=== PATIENT | female | born 1980 | race Caucasian/White ===

== ENCOUNTER 2018-06-15 06:09 | Inpatient (IN) | payer BC, OTHER ==
[~2018-06-15 06:09] MED LIST: Buffered Lidocaine 1% SYRIN* 1 ML/SYRINGE INTRADERM ONE; Famotidine TAB* 20 MG PO ONE; Lactated Ringers 1000 ML Bag* 1,000 ML IV SCH; Sodium Citrate/Citric Acid* 15 ML UDC PO ONE
[2018-06-15] MEDS ORDERED: ceFOXitin 2 GM IVPREMIX* 2 GM/50 ML BAG IVPB ONE (06:30)
[2018-06-15] MEDS ORDERED: Morphine PF AMP (0.5MG/ML)* 5 MG/10 ML AMP ONE (07:29)
[2018-06-15] MEDS ORDERED: fentaNYL* 50 MCG/ML 2 ML VIAL (100 MCG VIAL) ONE (07:29)
[2018-06-15] MEDS ORDERED: Ondansetron INJ* 2 MG/ML VIAL ONE (07:30)
[2018-06-15] MEDS ORDERED: Lidocaine 2% PF * 5 ML VIAL ONE (07:38)
[2018-06-15] MEDS ORDERED: OXYTOCIN* 10 UNITS/ML 1 ML VIAL ONE (08:24)
[2018-06-15] MEDS ORDERED: Ondansetron INJ* 2 MG/ML VIAL IV PRN (08:51)
[2018-06-15] MEDS ORDERED: Naloxone* 0.4 MG/ML 1 ML VIAL IV PRN (08:51)
[2018-06-15] MEDS ORDERED: oxyCODONE TAB* 5 MG TAB PO PRN (08:51)
[2018-06-15] MEDS ORDERED: Metoclopramide IV* 5 MG/ML 2 ML VIAL IV PRN (08:51)
[2018-06-15] MEDS ORDERED: Acetaminophen TAB* 325 MG PO PRN (09:15)
[2018-06-15] MEDS ORDERED: Witch Hazel PAD* JAR TOPICAL PRN (09:15)
--- NOTE | 2018-06-15 09:40 | OP ---
DATE OF OPERATION: 06/15/18 - ROOM #117 DATE OF : 78 SURGEON: Mariangel Sow MD. FIELD ACCOUNT MANAGER: Colin. ANESTHESIOLOGIST: Dr. Dodson. ANESTHESIA: Spinal. PRE-OP DIAGNOSIS: A 39 weeks gestation with history of previous section. POST-OP DIAGNOSIS: A 39 weeks gestation with history of previous section. OPERATIVE PROCEDURE: Repeat low-transverse section. ESTIMATED BLOOD LOSS: 700 cc. URINE OUTPUT: 200 cc. IV FLUIDS: 1200 cc lactated Ringer's. MATERIALS TO LAB: Cord blood. INDICATIONS: This patient was a 38-year-old 5, para 1 with history of previous section and surgery for endometriosis. The patient desired a repeat section. She was extensively counseled and consent was signed. FINDINGS: Normal-appearing uterus other than an apparent left fundal fibroid, normal fallopian tubes, and ovaries. Delivery was productive of a female weighing 7 pounds 2 ounces with Apgars of 8 and 9. TIME OF DELIVERY: 0825. COMPLICATIONS: None. DESCRIPTION OF PROCEDURE: The risks, benefits, and alternatives were described to the patient, and informed consent was obtained. The patient was taken to the operating room with IV running, where spinal anesthesia was induced and found to be adequate. The patient was prepped and draped in normal sterile fashion in the dorsal supine position with a leftward tilt. A Pfannenstiel skin incision was made with a scalpel through the patient's previous incision. This was carried down to the underlying fascia using the scalpel. The fascia was scored in the midline, and the incision was extended using Villarreal scissors. The fascia was dissected off the underlying rectus muscles using blunt and sharp dissection. The rectus muscles were in the midline using dissection with a Narda clamp. The peritoneum was then entered bluntly. A bladder blade was placed. A bladder flap was created sharply using Metzenbaum scissors. A low transverse uterine incision was then made with the scalpel. This was carried down to the amniotic membranes. The membranes were then ruptured, productive of clear fluid. The uterine incision was extended using blunt traction. The head was elevated to the level of the incision, and, with fundal pressure, the head delivered without much difficulty. The shoulders then were also both delivered and the body followed. The had good tone and cried immediately on delivery. The cord was doubly clamped and cut. The was then handed to the awaiting finance mgr. Cord blood was collected. The placenta was delivered with manual extraction. The uterus was then left in situ due to the bulky fundus and cleared of all clots and debris. The uterine incision was then reapproximated using 0 Vicryl in a running-locked fashion. A second layer of imbricating 0 Vicryl sutures was then also placed for good hemostasis. The posterior cul-de-sac was irrigated with saline. The uterus was then returned to the abdomen. The incision was reinspected and still noted to be hemostatic. The peritoneum was closed with 3-0 Vicryl in a running fashion. The fascia was closed with 0 Vicryl in a running fashion. The subcutaneous tissues were copiously irrigated and made hemostatic using the Bovie. The subcutaneous tissues were then reapproximated using 3-0 Vicryl in interrupted sutures. The skin was then closed with 4-0 Monocryl in a subcuticular stitch. Mastisol and steristrips were then applied. A sterile bandage was then placed over the incision. The patient tolerated the procedure well. Sponge, lap, and needle counts were correct x2. [id number]/[facility] #: [id number] [facility]
[2018-06-15] MEDS ORDERED: Lactated Ringers 1000 ML Bag* 1,000 ML IV SCH (10:00)
[2018-06-15] MEDS: Ketorolac INJ* 30 MG/ML 1 ML VIAL IV SCH ×3 (10:43→22:39)
[2018-06-15] MEDS: Simethicone TAB* 80 MG TAB.CHEW PO SCH ×3 (12:09→20:28)
[2018-06-15] MEDS: Docusate CAP* 100 MG PO SCH ×2 (12:09→20:28)
[2018-06-15] MEDS: Acetaminophen TAB* 325 MG PO SCH ×2 (13:44→19:42)
[2018-06-16] MEDS: Acetaminophen TAB* 325 MG PO SCH ×4 (01:37→20:15)
[2018-06-16] MEDS: Ketorolac INJ* 30 MG/ML 1 ML VIAL IV SCH (04:39)
[2018-06-16] MEDS: Docusate CAP* 100 MG PO SCH ×3 (07:56→20:15)
[2018-06-16] MEDS: Simethicone TAB* 80 MG TAB.CHEW PO SCH ×4 (07:58→20:15)
[2018-06-16 08:31] LABS: ABS Basophils 0 10^3/ul (0-0.2); ABS Eosinophils 0.1 10^3/ul (0-0.6); ABS Lymphocytes 1.7 10^3/ul (1.0-4.8); ABS Monocytes 0.7 10^3/ul (0-0.8); ABS Neutrophils 7.6 10^3/ul (1.5-7.7); ABS Nucleated RBC 0 10^3/ul; Eosinophil % 1.1 %; Hematocrit 31 % (33-41); Hemoglobin 10.6 g/dL (12.0-16.0); Lymphocyte % 16.8 %; Mean Corpuscular HGB Conc 35 g/dL (31-36); Mean Corpuscular Hemoglobin 30 pg (27-31); Mean Corpuscular Volume 87 fL (80-97); Mean Platelet Volume 8.4 fL (7.4-10.4); Nucleated Red Blood Cells % 0; Platelet Count 209 10^3/uL (150-450); Red Blood Count 3.53 10^6 /uL (3.70-4.87); Red Cell Distribution Width 13 % (10.5-15); White Blood Count 10.1 10^3/uL (3.5-10.8)
[2018-06-16] MEDS ORDERED: Albuterol HFA INHALER* 8 gm MDI INH PRN (08:47)
[2018-06-16] MEDS ORDERED: Tetan/Diph/Pertus SYR(Tdap)* 0.5 ML SYR(BOOSTRIX) use SYR IM ONE (09:00)
[2018-06-16] MEDS ORDERED: Ferrous Gluconate TAB* 324 MG TAB PO SCH (09:00)
[2018-06-16] MEDS: Ibuprofen TAB* 600 MG PO PRN ×3 (10:33→22:48)
[2018-06-17] MEDS: Acetaminophen TAB* 325 MG PO SCH ×4 (01:55→20:30)
[2018-06-17] MEDS: Ibuprofen TAB* 600 MG PO PRN ×4 (04:37→23:26)
[2018-06-17] MEDS: Levothyroxine TAB* 25 MCG TAB PO SCH (05:45)
[2018-06-17] MEDS: Docusate CAP* 100 MG PO SCH ×3 (08:36→20:29)
[2018-06-17] MEDS: Simethicone TAB* 80 MG TAB.CHEW PO SCH ×4 (08:36→20:30)
[2018-06-18] MEDS: Acetaminophen TAB* 325 MG PO SCH ×2 (03:01→09:22)
[2018-06-18] MEDS: Levothyroxine TAB* 25 MCG TAB PO SCH (05:28)
[2018-06-18] MEDS: Ibuprofen TAB* 600 MG PO PRN ×2 (05:28→11:15)
[2018-06-18 07:52] VITALS: BP 112/57
[2018-06-18] MEDS: Simethicone TAB* 80 MG TAB.CHEW PO SCH (09:21)
[2018-06-18] MEDS: Docusate CAP* 100 MG PO SCH (09:21)
== END 2018-06-18 14:32 | disposition home or self-care (01) | DRG 540 ==
LOC: MCHOB 06:09
PROVIDERS: ADMIT Obstetrics & Gynecology; ATTEND Obstetrics & Gynecology
PROC: 4A1HXCZ Monitoring of Products of Conception, Cardiac Rate, External Approach (ICD-10-PCS; 2018-06-15)
PROC: 10D00Z1 Extraction of Products of Conception, Low, Open Approach (ICD-10-PCS; principal; 2018-06-15 07:45)
DX: O34.211 Maternal care for low transverse scar from previous cesarean delivery (principal); J45.909 Unspecified asthma, uncomplicated; O99.52 Diseases of the respiratory system complicating childbirth; O99.284 Endocrine, nutritional and metabolic diseases complicating childbirth; E06.3 Autoimmune thyroiditis; Z37.0 Single live birth; Z3A.39 39 weeks gestation of pregnancy
CPT/HCPCS: 36415; 85025; A9270-GY; J0694; J1885; J2405; J2590; J3010

== ENCOUNTER 2018-07-26 15:30 | Emergency (ER) | payer BC ==
[2018-07-26 15:37] VITALS: BP 104/69
--- NOTE | 2018-07-26 16:04 | ED ---
Skin Complaint - HPI Summary HPI Summary: This patient is a 38-year-old female who presents to the urgent care with chief complaint of having and splinting in the right foot for the last 3 weeks. Now the area with a splinter is located is very painful and has some discharge. She reports that the pain is about 8 out of 10. She has no other complaints. - History of Current Complaint Chief Complaint: UCLowerExtremity Time Seen by Provider: 07/26/18 15:35 Stated Complaint: R FOOT COMPLAINT Hx Obtained From: Patient Hx Last Menstrual Period: August 2017 Skin Exposure Onset/Duration: Weeks Ago Onset Severity: Mild Current Severity: Mild Pain Intensity: 2 - Allergy/Home Medications Allergies/Adverse Reactions: Allergies Allergy/AdvReac Type Severity Reaction Status Date / Time No Known Allergies Allergy Verified 07/26/18 15:37 PMH/Surg Hx/FS Hx/Imm Hx Previously Healthy: Yes Endocrine/Hematology History: Reports: Hx Thyroid Disease - on Levothyroxine 25 mcg Denies: Hx Diabetes Cardiovascular History: Denies: Hx Hypertension Respiratory History: Reports: Hx Asthma Denies: Hx Chronic Obstructive Pulmonary Disease (COPD) GI History: Denies: Hx Ulcer History: Reports: Other Problems/Disorders - celiac dis. Psychiatric History: Reports: Hx Anxiety - Surgical History Surgery Procedure, Year, and Place: csection - 03/2012, 2019. D&C's. uterine surgeries Infectious Disease History: No Infectious Disease History: Denies: Hx Clostridium Difficile, Hx Hepatitis, Hx Human Immunodeficiency Virus (HIV), Hx of Known/Suspected MRSA, Hx Shingles, Hx Tuberculosis, Traveled Outside the [place] in Last 30 Days - Social History Alcohol Use: None Substance Use Type: Reports: None Smoking Status (MU): Never Smoked Tobacco Review of Systems Constitutional: Negative Eyes: Negative ENT: Negative Cardiovascular: Negative Respiratory: Negative Gastrointestinal: Negative Genitourinary: Negative Musculoskeletal: Negative Positive: Other - Splinter in the right foot Neurological: Negative Psychological: Normal All Other Systems Reviewed And Are Negative: No Physical Exam - Summary Physical Exam Summary: Vital signs: Reviewed Gen.: Patient is a well-developed and nourished female in no acute distress. Patient is lying comfortably on the stretcher. Head: Normocephalic and atraumatic Eyes: PERRLA, EOMI x2. Ears: Right and Left ear canal and TM WNL Nose and mouth: Neck: Supple, no lymphadenopathy, no JVD Lungs: CTA B/L CVS: S1 & S2 present. No murmurs appreciated. ABDOMEN: Soft, non-tender. No signs of distention. No rebound no guarding, and no masses palpated. Bowel sounds are normal. EXTREMITIES: Right foot with a foreign body NEURO: Alert and oriented x 3. No acute neurological deficits. Speech is normal and follows commands. SKIN: Dry and warm Triage Information Reviewed: Yes Vital Signs On Initial Exam: Initial Vitals Temp Pulse Resp BP Pulse Ox 97.5 F 73 16 104/69 97 07/26/18 15:32 07/26/18 15:32 07/26/18 15:32 07/26/18 15:32 07/26/18 15:32 Vital Signs Reviewed: Yes Diagnostics - Vital Signs Vital Signs Temp Pulse Resp BP Pulse Ox 07/26/18 15:32 97.5 F 73 16 104/69 97 - Laboratory Lab Statement: Any lab studies that have been ordered have been reviewed, and results considered in the medical decision making process. Course/Dx - Course Assessment/Plan: Using a 15 blade I scraped some of the callus and the splinter was visible which was approximately 1.3 cm and it was removed. Was copious amount of purulent discharge after the splinter was removed. Wound culture was obtained and sent to the lab. The patient already has a prescription for Keflex which she was started taking today. Patient will follow-up with primary care physician in the next 2-3 days medication and to the one is getting better. Patient is hemodynamically stable alert oriented 3. - Diagnoses Provider Diagnoses: Foreign body foot/toe Discharge - Sign-Out/Discharge Documenting (check all that apply): Patient Departure All imaging exams completed and their final reports reviewed: No Studies - Discharge Plan Condition: Stable Disposition: HOME Patient Education Materials: Soft Tissue Foreign Body (ED), Cellulitis (ED) Referrals: Trina Vitale MD [Primary Care Provider] - Additional Instructions: Take medications as instructed. Follow-up with the primary care physician the next 2 days. Return to the urgent care if symptoms worsen. - Billing Disposition and Condition Condition: STABLE Disposition: Home
--- NOTE | 2018-07-27 17:43 | UC ---
- Progress Note Progress Note: 07/27/2018 Wound culture: positive cocci resembling strep. Pt on Keflex PO Final report still pending NO change. Arcelia Balbuena PA-C Course/Dx - Diagnoses Provider Diagnoses: Foreign body foot/toe Discharge - Sign-Out/Discharge Documenting (check all that apply): Post-Discharge Follow Up All imaging exams completed and their final reports reviewed: No Studies - Discharge Plan Condition: Stable Disposition: HOME Patient Education Materials: Soft Tissue Foreign Body (ED), Cellulitis (ED) Referrals: Trina Vitale MD [Primary Care Provider] - Additional Instructions: Take medications as instructed. Follow-up with the primary care physician the next 2 days. Return to the urgent care if symptoms worsen. - Billing Disposition and Condition Condition: STABLE Disposition: Home
== END 2018-07-26 16:21 | disposition home or self-care (01) ==
LOC: UCEAST 15:30
DX: S90.851A Superficial foreign body, right foot, initial encounter (principal); E07.9 Disorder of thyroid, unspecified; Z79.890 Hormone replacement therapy; W45.8XXA Other foreign body or object entering through skin, initial encounter; Y92.9 Unspecified place or not applicable
CPT/HCPCS: 87070; 87077; 87186; 87205; 99211; G0463

== ENCOUNTER 2018-12-30 11:27 | Emergency (ER) | payer BC ==
[2018-12-30 11:42] VITALS: BP 96/67
--- NOTE | 2018-12-30 11:44 | UC ---
Nausea/Vomiting/Diarrhea HPI - HPI Summary HPI Summary: Patient presents to urgent care for evaluation of diarrhea. Patient states she is having loose bowel movements 5-6 times a day and has been doing so for approximately 2 weeks. No blood, no mucous. Patient denies fevers or chills. Patient states initially she had some cramping but since that time has had no abdominal pain. No fevers or chills. No rashes. No nausea or vomiting. Patient's father has the same symptoms for 2 weeks. Patient's [id number] water from a well. Patient states she is fresh troubles from his garden. Patient without vaginal discharge, itching or odor. Patient making good urine. Patient without any recent travel and no recent antibiotics. Patient without any known significant exposure. Patient is a nursing mother of a 6-month-old with out symptoms. Patient also has a taco without any symptoms. Patient's medications review of this visit. Patient came to today because she was unable to get up a appointment primary care provider - History of Current Complaint Chief Complaint: UCGeneralIllness Stated Complaint: DIARRHEA Time Seen by Provider: 12/30/18 11:43 Hx Obtained From: Patient Hx Last Menstrual Period: Breast feeding Pain Intensity: 0 - Allergies/Home Medications Allergies/Adverse Reactions: Allergies Allergy/AdvReac Type Severity Reaction Status Date / Time No Known Allergies Allergy Verified 07/26/18 15:37 PMH/Surg Hx/FS Hx/Imm Hx Previously Healthy: Yes - Surgical History Surgical History: Yes Surgery Procedure, Year, and Place: [facility] - 03/2012, 2019. D&C's. uterine surgeries - Family History Known Family History: Positive: Non-Contributory - Social History Lives: With Family Alcohol Use: None Substance Use Type: None Smoking Status (MU): Never Smoked Tobacco - Immunization History Most Recent Influenza Vaccination: 02/04/18 Most Recent Tetanus Shot: 2 yrs Most Recent Pneumonia Vaccination: None Review of Systems All Other Systems Reviewed And Are Negative: Yes Constitutional: Positive: Negative. Negative: Fever, Fatigue Respiratory: Positive: Negative Cardiovascular: Positive: Negative Gastrointestinal: Positive: Diarrhea. Negative: Vomiting, Nausea Physical Exam - Summary Physical Exam Summary: Vital Signs Reviewed: Yes A+Ox3, no distress Eyes: Conjunctiva Clear, JAREK. EOM intact and full ENT: Hearing grossly normal TM x 2 clear, mmoist, uvula midline, no exudate, no erythema Neck: Positive: Supple Respiratory: Positive: No respiratory distress, No accessory muscle use + CTA throughout no w/r Cardiovascular: RRR nl s1, s2 no m/r CBT <2 sec abd soft + BS nt/nd no guarding, no distension Musculoskeletal Exam: RICHARDS x 4 without difficulty Strength Intact, ROM Intact Neurological: Positive: Alert, + sensation throughout Psychological: Positive: Normal Response To examiner Skin: Positive: no rash, no ecchymosis Triage Information Reviewed: Yes Vital Signs: Initial Vital Signs Temp 98.1 F 12/30/18 11:36 Pulse 72 12/30/18 11:36 Resp 16 12/30/18 11:36 BP 96/67 12/30/18 11:36 Pulse Ox 98 12/30/18 11:36 Naus/Vom/Diarrhea Course/Dx - Course Course Of Treatment: Patient presents to urgent care reported diarrhea for several weeks. Patient denies fevers or chills. States has mild cramping improved with diarrhea. No blood no blood or mucus. Patient's was similar symptoms. On exam vital signs are stable. Patient concerning. On discussion with patient about plan of care. We'll check stool cultures urine for dehydration and blood work. Patient comfortable and agreed with plan. Return precautions discussed. Patient will plan a follow-up appointment with PCP. Patient in agreement. - Differential Dx/Diagnosis Provider Diagnosis: Diarrhea Condition At Discharge: Stable Discharge ED - Sign-Out/Discharge Documenting (check all that apply): Patient Departure All imaging exams completed and their final reports reviewed: No Studies - Discharge Plan Condition: Stable Disposition: HOME Patient Education Materials: Chronic Diarrhea (ED) Referrals: Trina Vitale MD [Primary Care Provider] - Additional Instructions: -As discussed, you had both blood and stool tests taken today. These results will come back over the next several days. If you have any concerning findings, you will receive a call from a care steam locomotive firer/fireman - Stay well hydrated. Drink plenty of non-alcoholic, non-caffinated beverages - If you develop pain, fevers, are unable to stay hydrated or you have any other concerns it is recommended you go to the emergency department for further evaluation and treatment - Billing Disposition and Condition Condition: STABLE Disposition: Home
[2018-12-30 16:34] LABS: ABS Eosinophils 0.1 10^3/ul (0-0.6); ABS Lymphocytes 1.5 10^3/ul (1.0-4.8); ABS Monocytes 0.3 10^3/ul (0-0.8); ABS Neutrophils 3.6 10^3/ul (1.5-7.7); Eosinophil % 2.2 %; Hematocrit 40 % (35-47); Hemoglobin 13.8 g/dL (12.0-16.0); Lymphocyte % 26.3 %; Mean Corpuscular HGB Conc 35 g/dL (31-36); Mean Corpuscular Hemoglobin 30 pg (27-31); Mean Corpuscular Volume 87 fL (80-97); Mean Platelet Volume 8.7 fL (7.4-10.4); Platelet Count 271 10^3/uL (150-450); Red Blood Count 4.59 10^6 /uL (3.70-4.87); Red Cell Distribution Width 13 % (10-15); White Blood Count 5.6 10^3/uL (3.5-10.8)
[2018-12-30 16:42] LABS: Albumin 4.4 g/dL (3.2-5.2); Calcium 9.1 mg/dL (8.6-10.3); Magnesium 1.9 mg/dL (1.9-2.7); Total Bilirubin 0.4 mg/dL (0.2-1.0)
[2018-12-30 16:48] LABS: Albumin/Globulin Ratio 1.8 (1-3); BUN/Creatinine Ratio 11.8 (8-20); EGFR African American 102.5 (>60); EGFR Non-African American 84.7 (>60); Globulin 2.5 g/dL (2-4); Total Protein 6.9 g/dL (6.4-8.9)
--- NOTE | 2018-12-31 12:22 | UC ---
- Progress Note Progress Note: CBC with dif reviewed cmp with mag wnl Neg crypto, giardia no change ljj 12/31/18 Course/Dx - Diagnoses Provider Diagnoses: Diarrhea Discharge ED - Sign-Out/Discharge Documenting (check all that apply): Patient Departure All imaging exams completed and their final reports reviewed: No Studies - Discharge Plan Condition: Stable Disposition: HOME Patient Education Materials: Chronic Diarrhea (ED) Referrals: Trina Vitale MD [Primary Care Provider] - Additional Instructions: -As discussed, you had both blood and stool tests taken today. These results will come back over the next several days. If you have any concerning findings, you will receive a call from a care merchandise flow team leader - Stay well hydrated. Drink plenty of non-alcoholic, non-caffinated beverages - If you develop pain, fevers, are unable to stay hydrated or you have any other concerns it is recommended you go to the emergency department for further evaluation and treatment - Billing Disposition and Condition Condition: STABLE Disposition: Home
== END 2018-12-30 12:24 | disposition home or self-care (01) ==
LOC: UCEAST 11:27
DX: R19.7 Diarrhea, unspecified (principal)
CPT/HCPCS: 36415; 80053; 81003; 83630; 83690; 83735; 85025; 87045; 87046; 87177; 87209; 87328; 87329; 87899; 99211; G0463

== ENCOUNTER 2023-08-28 06:02 | Observation (INO) ==
[~2023-08-28 06:02] MED LIST changes: -Buffered Lidocaine 1% SYRIN* 1 ML/SYRINGE INTRADERM ONE; -Famotidine TAB* 20 MG PO ONE; -Lactated Ringers 1000 ML Bag* 1,000 ML IV SCH; +Metoclopramide 5 MG/ML VIAL (10 mg) IV PRN; +NS 0.45% 1000 ml BAG 1,000 ML IV SCH; +Naloxone 0.4 mg VIAL 0.4 mg/ml 1 ml VIAL IV PRN; +Ondansetron 4 mg VIAL 2 MG/ML 2 ml VIAL IV PRN; -Sodium Citrate/Citric Acid* 15 ML UDC PO ONE; +fentaNYL 100 mcg/2 ml 50 MCG/ML VIAL IV PRN
[2023-08-28] MEDS ORDERED: Lidocaine 2% PF 5 ML VIAL ONE (06:26)
[2023-08-28] MEDS ORDERED: fentaNYL 250 mcg/5 ml 50 MCG/ML 5 ml VIAL (250 MCG) ONE ×2 (06:27→08:19)
[2023-08-28] MEDS ORDERED: Midazolam 2 mg/2 ml VIAL 1 mg/ml 2 ml VIAL (2 mg) ONE (06:27)
[2023-08-28] MEDS ORDERED: Rocuronium 50 mg VIAL 10 mg/ml 5 ml VIAL (50 mg) ONE ×2 (06:32→08:00)
[2023-08-28] MEDS ORDERED: Scopolamine 1 mg/72hr PATCH ONE (06:36)
[2023-08-28] MEDS ORDERED: Dexamethasone IV 4 MG/ML VIAL 1 ml VIAL ONE (06:37)
[2023-08-28] MEDS ORDERED: Propofol 10 mg/ml 100 ML BTL 2,000 MG/200 ML BTL ONE (06:37)
[2023-08-28] MEDS ORDERED: ceFAZolin 2 GM PREMIX 2 GM/50 ML BAG ONE (06:37)
[2023-08-28] MEDS ORDERED: Ondansetron 4 mg VIAL 2 MG/ML 2 ml VIAL ONE (06:37)
[2023-08-28] MEDS ORDERED: Buffered Lidocaine 1% SYRIN 1 ml ONE (06:37)
[2023-08-28 06:53] LABS: Rapid COVID-19 Molecular Undetected (Undetected)
[2023-08-28] MEDS: Scopolamine 1 mg/72hr PATCH TRANSDERM ONE (07:06)
[2023-08-28] MEDS ORDERED: Methylene Blue 1% (ANTIDOTE) 10 MG/ML 10 ML SDV VIAL IVPB ONE (07:19)
[2023-08-28] MEDS ORDERED: Bupivacaine 0.25% SDV 30 ML ONE (07:19)
[2023-08-28] MEDS ORDERED: ISOSULFAN BLUE 1% 5 ML VIAL 10 MG/ML SUBCUT ONE (07:19)
[2023-08-28] MEDS ORDERED: HYDROmorphone 0.5 MG/0.5 ML SYRINGE ONE ×2 (08:25→09:20)
[2023-08-28] MEDS: Buffered Lidocaine 1% SYRIN 1 ml INTRADERM ONE (11:41)
[2023-08-28] MEDS: Acetaminophen IV 1 GM/100ML 1,000 MG/100 ML BAG IV ONE (11:41)
[2023-08-28] MEDS: Lactated Ringers 1000 ml BAG 1,000 ML IV SCH ×2 (11:41→14:36)
[2023-08-28] MEDS ORDERED: Morphine 2 MG/ML SYRINGE IV PRN (12:16)
[2023-08-28] MEDS ORDERED: oxyCODONE/Acetamin 5/325 mg TAB PO PRN (12:18)
[2023-08-28] MEDS: Lactated Ringers 1000 ml BAG 1,000 ML IV ONE ×2 (12:53→20:23)
[2023-08-28] MEDS ORDERED: Albuterol HFA INHALER 8 gm MDI INH PRN (19:19)
[2023-08-28 20:41] LABS: ABS Monocytes 0.5 10^3/uL (0.0-0.9); ABS Neutrophils 8.9 10^3/uL (1.5-7.6); ABS Nucleated RBC 0.01 10^3/ul; Hematocrit 35.7 % (35-45); Hemoglobin 12.3 g/dL (11.5-14.3); Mean Corpuscular Hemoglobin 30.6 pg (27-33); Mean Corpuscular Hgb Conc 34.3 g/dL (31-36); Mean Corpuscular Volume 89.2 fL (80-97); Mean Platelet Volume 8.9 fL (7.5-11.2); Platelet Count 213 10^3/uL (150-450); Red Cell Distribution Width 13.6 % (12-17); White Blood Count 10.5 10^3/uL (3.8-11.8)
[2023-08-28] MEDS: ceFAZolin 2 GM in NS PREMIX 2 GM/100 ML BAG IVPB SCH (22:31)
[2023-08-29 05:22] LABS: ABS Monocytes 0.6 10^3/uL (0.0-0.9); ABS Neutrophils 5.4 10^3/uL (1.5-7.6); Eosinophil % 0.4 %; Mean Corpuscular Hemoglobin 30.9 pg (27-33); Mean Corpuscular Hgb Conc 34.5 g/dL (31-36); Mean Corpuscular Volume 89.5 fL (80-97); Mean Platelet Volume 9.3 fL (7.5-11.2); Nucleated Red Blood Cells % 0.1 %/100WBC (0.0-0.8); Platelet Count 197 10^3/uL (150-450); Red Blood Count 3.57 10^6/uL (3.63-4.92); Red Cell Distribution Width 13.5 % (12-17)
[2023-08-29 09:42] VITALS: BP 90/54
[2023-08-29] MEDS: Benzocaine/Menthol LOZ PO PRN (10:30)
== END 2023-08-29 15:05 | disposition home or self-care (01) ==
LOC: SSU → AA → INTOOBSV 06:02 → AA 06:02 → EDSTATUS 07:30
PROVIDERS: ADMIT Plastic Surgery; ATTEND Plastic Surgery